=== PATIENT | female | born 1955 | race Caucasian/White ===

== ENCOUNTER 2016-11-19 08:02 | Day surgery (SDC) | payer OTHER ==
[~2016-11-19] VITALS: Ht 163.8 cm; Wt 106.5 kg
[~2016-11-19 08:02] MED LIST: ACTOS15 MG PO; ARIMIDEX1 MG PO; ASPIR-LOW81 MG PO; BACTRIM,SEPT1 TABLET PO; CLARITIN10 MG PO; COLACE100 MG PO; COMPAZINE10 MG PO; FLONASE16 G1 BOTH NARES; JANUVIA100 MG PO; JANUVIA25 MG PO; LEVO-T200 MCG PO; LEVOTHYROXINE150 MCG PO; LEVOTHYROXINE175 MCG PO; METFORMIN HCL1000 MG PO; MULTIVITAMIN1 EAC2 PO; NITROSTAT0.4 MG SL; NORCO 5/3251 TABLET PO; OXAYDO5 MG PO; PERCOCET 10/1 TABLET PO; SYNTHROID50 MCG PO; TRADJENTA5 MG PO; TRIAMCINOLONE A15 G2 TP; VITAMIN D31000 UNI2 PO
[2016-11-19 08:57] LABS: POINT-OF-CARE METER ID UU14174212
[2016-11-19] MEDS ORDERED: COLACE100 MG PO (10:34)
[2016-11-19] MEDS ORDERED: PERCOCET 5/31 TABLET PO (10:34)
[2016-11-19 10:59] LABS: POINT-OF-CARE METER ID UU13113675
[2016-11-19 11:43] VITALS: BP 108/57
[2016-11-19 12:51] VITALS: BP 110/70
== END 2016-11-19 13:10 | disposition home or self-care (01) ==
LOC: SDC 08:02
PROVIDERS: Surgery
DX: Z45.2 Encounter for adjustment and management of vascular access device (principal); I87.8 Other specified disorders of veins; Z85.3 Personal history of malignant neoplasm of breast; Z92.21 Personal history of antineoplastic chemotherapy; E11.9 Type 2 diabetes mellitus without complications; E06.3 Autoimmune thyroiditis; E66.9 Obesity, unspecified; G47.30 Sleep apnea, unspecified; Z79.84 Long term (current) use of oral hypoglycemic drugs; Z87.891 Personal history of nicotine dependence
CPT/HCPCS: 82948; 88300; 93005; J2250; J3010; S0020